=== PATIENT | male | born 1960 | race Caucasian/White ===

== ENCOUNTER 2016-05-18 18:22 | Emergency (ER) | payer OTHER ==
[~2016-05-18] VITALS: Ht 182.9 cm; Wt 124.3 kg
[~2016-05-18 18:22] MED LIST: LOPRESSOR 25MG25 MG PO
--- NOTE | 2016-05-18 19:16 | ED INFLUENZA/URI COMPLAINT ---
History of Present Illness General Chief Complaint: General Adult Stated Complaint: FEVER/SWEATING/MCGEE/CHILLS Source: patient, family, old records Exam Limitations: no limitations Allergies Coded Allergies: No Known Allergies (04/23/15) Reconcile Medications Amoxicillin/Clavulanate Potass (Amox-Clav 875-125 MG Tablet) 875 MG-125 MG TABLET 1 TAB PO ONCE ANTIBIOTIC (Reported) Empagliflozin (Jardiance) 25 MG TABLET 1 TAB PO DAILY DM (Reported) Exenatide Microspheres (Bydureon Pen) (Unknown Strength) PEN.INJCTR (Unknown Dose) UNKNOWN (Reported) Ibuprofen 800 MG TABLET 1 TAB PO TID PRN fever pain Lisinopril 10 MG TABLET 1 TAB PO DAILY BP (Reported) Metformin HCl 1,000 MG TABLET 1 TAB PO BID DM (Reported) Metoprolol Tartrate 25 MG TABLET 1 TAB PO BID HEART/BP (Reported) Niacin (Niaspan) (Unknown Strength) TAB.ER.24H (Unknown Dose) UNKNOWN ( Reported) Oseltamivir Phosphate (Tamiflu) 75 MG CAPSULE 1 CAP PO BID viral Sitagliptin Phosphate (Januvia) 100 MG TABLET 1 TAB PO DAILY DM (Reported) Triage Note: RECEIVED 55 YO MALE C/O CHILLS, FEVER, HEADACHES, SWEATING, STARTED YESTERDAY. NO C/O N/V/D. NO C/O SOB/C.P. OCCASIONAL COUGH, CONGESTION. Triage Nurses Notes Reviewed? yes Onset: Abrupt Duration: day(s): (1), constant Timing: recent history Severity: moderate Severity Numbers: 6 Prior Episodes/Possible Cause: no prior episodes No Modifying Factors: none Associated Symptoms: cough, fever/chills, muscle aches HPI: 55-year-old male with history of hypertension diabetes sarcoidosis presents to emergency room complaining of chills fevers as high as 101 nonproductive cough diaphoresis congestion which she states feels like a sinus infection for the past 2 days. Patient denies any sick contacts. Patient states he always has a dry nonproductive cough and this cough today is no different from the past. He denies shortness of breath chest pain palpitations abdominal pain nausea vomiting or diarrhea no urinary symptoms or rashes to the skin. Denies any recent tick or insect bite there is no modifying factors or associated symptoms otherwise his last dose of Advil was at 3:00 today. (JIMBO LINARES) Vital Signs & Intake/Output Vital Signs & Intake/Output Vital Signs Date Time Temp Pulse Resp B/P Pulse O2 O2 Flow FiO2 Ox Delivery Rate 05/18 2146 98.5 114 18 136/75 95 05/18 1841 96.3 143 20 122/83 96 Room Air Past History Travel History Traveled to [place] past 21 day No Medical History Any Pertinent Medical History? see below for history Neurological: NEUROPATHY EENT: NONE Cardiovascular: HYPERTENSION Respiratory: NONE Gastrointestinal: NONE Hepatic: NONE Renal: NONE Musculoskeletal: SARCODIOSIS Psychiatric: NONE Endocrine: DIABETES 2 Blood Disorders: NONE Cancer(s): NONE Surgical History Surgical History: non-contributory Psychosocial History What is your primary language Nepalese Tobacco Use: Never used Family History Hx Contributory? No (JIMBO LINARES) Review of Systems Review of Systems Constitutional: Reports: see HPI. All Other Systems: Reviewed and Negative Comments Review of systems: See HPI, All other systems negative. Constitutional, chills fever, malaise no weight loss HEENT: No visual changes no sore throat congestion, no ear pain Cardiovascular: No chest pain , no palpitation Skin, no jaundice no rashes, no change in skin Respiratory: No dyspnea no cough no sputum no hemoptysis GI: No nausea no vomiting, no diarrhea, no bloating/constipation : No dysuria No hematuria, no frequency Muscle skeletal: No joint pain, no back pain, no neck pain, Neurologic: No numbness no headache Psych: No stress n Heme/endocrine: No bruising no bleeding Immunology: No lymphadenopathy (JIMBO LINARES) Physical Exam Physical Exam General Appearance: well developed/nourished, no apparent distress, alert, awake Ears, Nose, Throat: normal ENT inspection, moist mucous membrane Comments: Well-developed well-nourished person in no acute distress Head/Face: Atraumatic, no maxillary/frontal sinus tenderness, no facial swelling Eyes: PERRL, EOMI, no conjunctival injection. No nystagmus Ear:External auditory canal and Tympanic membranes clear, no erythema, no FB. Nose: atraumatic.Normal inspection: No bleeding Throat: Moist mucous membranes.Pharynx normal. No pharyngeal erythema/exudate seen. No stridor/drooling or assymetry. No swelling or edema. Neck: Supple, no lymphadenopathy, FROM Back: Nontender, no CVA tenderness. Full range of motion Cardiovascular: Tachycardic, regular rhythm no murmurs rubs Respiratory: Chest nontender.There were no bony deformities, no asymmetry. No respiratory distress. Patient speaking in full complete sentences. Breath sounds clear to auscultation bilaterally: NO W/R/R Abdomen: Soft, nontender nondistended, no appreciable organomegaly. Normal bowel sounds. No rebound/guarding, Extremity: No edema, full range of motion of extremities, normal and equal pulses bilaterally, 5 out of 5 strength noted to bilateral upper and lower extremities Neuro: Alert oriented x3, motor sensory normal, cranial nerves II through XII grossly intact. There were no obvious focal neurologic abnormalities. Skin: No appreciable rash on exposed skin, skin is warm and dry. Psych: Mood and affect is normal, memory and judgment is normal. Core Measures Severe Sepsis Present: No Septic Shock Present: No (MAGDALENA ARIAS,JIMBO) Progress Differential Diagnosis: influenza, meningitis, otitis, pneumonia, pharyngitis, sinusitis, UTI, ELECTROLYTE ABNORMALITY, thyroid abnoramlity, sinusitits Diagnostic Imaging: Viewed by Me: Radiology Read. Discussed w/RAD: Radiology Read. Radiology Impression: PATIENT: DENVER OROZCO PRESENT AGE: 55 PATIENT ACCOUNT NO: [id number] : 60 LOCATION: [facility] ORDERING PHYSICIAN: JIMBO ARIAS SERVICE DATE: 05/18/16 EXAM TYPE: RAD - XRY- PORTABLE CHEST XRAY EXAMINATION: XR PORTABLE CHEST CLINICAL INFORMATION: Fever, cough. History of sarcoidosis. COMPARISON: Chest x-ray 04/23/2015. TECHNIQUE: Portable AP view of the chest was obtained. FINDINGS: The lungs are well- expanded and clear without focal airspace consolidation. No pleural effusions or pneumothoraces are identified. Cardiomediastinal contours are within normal limits. Soft tissues are unremarkable. No acute osseous abnormality is identified. IMPRESSION: No acute pulmonary process. DICTATED BY: RITA GUEVARA MD DATE/TIME DICTATED:05/18/162024 ASTROBIOLOGIST:JOSSELINE DATE/TIME TRANSCRIBED:05/18/162024 CONFIDENTIAL, DO NOT COPY WITHOUT APPROPRIATE AUTHORIZATION. <Electronically signed in Other Vendor System> SIGNED BY: RITA GUEVARA MD 05/18/162028 Initial ED EKG: STACH AT 130, NORMAL AXIS, NO ACUTE ST SEG CHANGES, NORMAL INTERVALS Prior EKG: unchanged (stach in 130s-03/2015) Rhythm Strip: sinus tachycardia (JIMBO LINARES) Plan of Care: Orders Procedure Date/time Status Add-on Test (ER Only) 05/19 2035 Active THYROID STIMULATING HORMONE 05/18 1952 Complete URINE DRUGS OF ABUSE 05/19 1935 Complete URINALYSIS 05/19 1935 Complete Saline Lock 05/18 1914 Active RAPID VIRAL INFLUENZA A 05/19 1911 Complete BLOOD CULTURE 05/19 1911 Active LACTIC ACID 05/19 1911 Complete COMPREHENSIVE METABOLIC PANEL 05/19 1911 Complete CBC WITHOUT DIFFERENTIAL 05/19 1911 Complete EKG 05/19 1843 Active Current Medications Sig/Heber Start time Last Medication Dose Stop Time Status Admin Furosemide 40 MG ONCE ONE 05/18 2044 CAN (Lasix) 05/18 2045 Laboratory Tests 05/18/162211: Lactic Acid Cancelled 05/18/162113: Urine Opiates Screen < 100.00, Methadone Screen < 40, Barbiturate Screen < 60, Ur Phencyclidine Scrn < 6.00, Amphetamines Screen < 100, U Benzodiazepines Scrn < 85, Urine Cocaine Screen < 50, Urine Cannabis Screen < 5.00, Urinalysis LIGHT H, Urine Color YEL, Urine Clarity CLEAR, Urine pH 5.5, Ur Specific Rhodelia 1.020 , Urine Protein 30 H, Urine Ketones TRACE H, Urine Nitrite NEG, Urine Bilirubin NEG, Urine Urobilinogen 0.2, Ur Leukocyte Esterase NEG, Ur Microscopic SEDIMENT EXAMINED, Urine WBC 3-5 H, Urine Hemoglobin NEG, Urine Glucose >=1000 H 05/18/161952: Anion Gap 13, Estimated GFR > 60, BUN/Creatinine Ratio 18.6, Glucose 308 H, Lactic Acid 1.5, Calcium 9.6, Total Bilirubin 1.3, AST 74 H, ALT 103 H, Alkaline Phosphatase 114, Total Protein 7.6, Albumin 4.3, Globulin 3.3, Albumin/ Globulin Ratio 1.3, TSH 1.830, CBC w Diff NO MAN DIFF REQ, RBC 5.59, MCV 82.9, MCH 28.3, RDW 13.5, MPV 7.2 L, Gran % 71.4, Lymphocytes % 15.9 L, Monocytes % 11.3 H, Eosinophils % 0.8, Basophils % 0.6, Absolute Granulocytes 5.4, Absolute Lymphocytes 1.2, Absolute Monocytes 0.8 H, Absolute Eosinophils 0.1, Absolute Basophils 0, PUBS MCHC 34.2 Microbiology 05/18 2028 NASKIARYN: Influenza Virus A & B Rapid Smear - COMP 05/19 2011 BLOOD: Blood Culture - RECD 05/19 1951 BLOOD: Blood Culture - RECD Old records reviewed patient has been tachycardic up into the 130s and his previous ER evaluations labs ordered old records reviewed IV fluids patient medicated with Toradol 30 motor grams IV 05/18/2016 9:20:55 PM I discussed with the patient all his lab results to date are rate is now in the 110 sinus tach IV fluids are running patient remains afebrile, case was discussed with Dr. Reyna agrees with plan I discussed the patient plan of care going forward he feels comfortable this plan nontoxic appearing at this time 05/18/2016 9:57:09 PM discussed the patient only all of his remaining lab results need for close follow-up as scheduled on Saturday I discussed with the patient at length all of their results. I had an extensive conversation regarding need for close follow up with their primary care physician this week as well as return precautions. I answered all of their questions, they feel comfortable with the plan and follow-up care. I discussed the medications that they will receive with the patient. I gave them signs and symptoms that could indicate an adverse reaction. I have advised them to limit their activities until they can see how they respond to the medication. (MAGDALENA ARIAS,JIMBO) Departure Departure Time of Disposition: 2154 Disposition: HOME OR SELF CARE Condition: Stable Clinical Impression Primary Impression: Viral syndrome Referrals: TREE SILVA,CAN Burden (PCP/Family) Additional Instructions: Take the Augmentin as previously directed, Tamiflu as discussed you have been given tonight's dose here in the ER. Drink plenty of fluids. Interchange Tylenol Motrin every 4-6 hours. The ibuprofen and Tamiflu were sent to your pharmacy. Return immediately if he had persistent fever, worsening of your symptoms despite medication or have any other concerns otherwise follow-up with her primary care physician for follow-up repeat evaluation on Saturday Departure Forms: Customer Survey General Discharge Information Prescriptions: Current Visit Scripts Oseltamivir Phosphate (Tamiflu) 1 CAP PO BID #10 CAP Ibuprofen 1 TAB PO TID PRN fever pain #30 TAB (MAGDALENA ARIAS,JIMBO) PA/ASSEMBLY MACHINE TOOL SETTER Co-Sign Statement Statement: ED Attending supervision documentation- [x] I saw and evaluated the patient. I have also reviewed all the pertinent lab results and diagnostic results. I agree with the findings and the plan of care as documented in the PA's/ASSEMBLY MACHINE TOOL SETTER's documentation. [] I have reviewed the ED Record and agree with the PA's/ASSEMBLY MACHINE TOOL SETTER's documentation. [] Additions or exceptions (if any) to the PAs/ASSEMBLY MACHINE TOOL SETTER's note and plan are summarized below: [] (DOMITILA SILVA,GABY Alfonso)
[2016-05-18] MEDS ORDERED: NIASPAN500 M1 (19:23)
[2016-05-18] MEDS ORDERED: AMOX-CLAV 875-1 EACH PO (19:23)
[2016-05-18] MEDS ORDERED: BYDUREON P2 MG/0.65 (19:24)
[2016-05-18] MEDS ORDERED: JANUVIA100 M1 PO (19:25)
[2016-05-18] MEDS ORDERED: LISINOPRIL10 M1 PO (19:26)
[2016-05-18] MEDS ORDERED: JARDIANCE25 M1 PO (19:26)
[2016-05-18] MEDS ORDERED: METOPROLOL TART25 M1 PO (19:26)
[2016-05-18] MEDS ORDERED: METFORMIN HCL1000 M1 PO (19:26)
--- NOTE | 2016-05-18 20:29 | RADIOLOGY REPORT ---
EXAMINATION: XR PORTABLE CHEST CLINICAL INFORMATION: Fever, cough. History of sarcoidosis. COMPARISON: Chest x-ray 04/23/2015. TECHNIQUE: Portable AP view of the chest was obtained. FINDINGS: The lungs are well-expanded and clear without focal airspace consolidation. No pleural effusions or pneumothoraces are identified. Cardiomediastinal contours are within normal limits. Soft tissues are unremarkable. No acute osseous abnormality is identified. IMPRESSION: No acute pulmonary process.
[2016-05-18 20:34] LABS: ABSOLUTE BASOPHIL COUNT 0 /CUMM (0.0-0.2); ABSOLUTE EOSINOPHIL COUNT 0.1 /CUMM (0.0-0.7); ABSOLUTE GRANULOCYTE CT 5.4 /CUMM (1.4-6.5); ABSOLUTE LYMPH COUNT 1.2 /CUMM (1.2-3.4); ABSOLUTE MONOCYTE COUNT 0.8 /CUMM (0.10-0.60); BASOPHIL % 0.6 % (0.0-2.0); EOSINOPHIL % 0.8 % (0-5); GRANULOCYTE % 71.4 % (42.2-75.2); HEMATOCRIT 46.3 % (42-52); MEAN CORPUSCULAR HGB 28.3 PG (27.0-31.0); MEAN CORPUSCULAR HGB CONC 34.2 G/DL (33.0-37.0); MEAN CORPUSCULAR VOLUME 82.9 FL (80.0-94.0); MEAN PLATELET VOLUME 7.2 FL (7.4-10.4); PLATELET COUNT 224 /CUMM (130-400); RBC DISTRIBUTION WIDTH 13.5 % (11.5-14.5); RED BLOOD CELL CT 5.59 /CUMM (4.70-6.10); WHITE BLOOD CELL COUNT 7.5 /CUMM (4.8-10.8)
[2016-05-18 21:46] VITALS: BP 136/75
[2016-05-18] MEDS ORDERED: TAMIFLU75 M1 PO (21:56)
[2016-05-18] MEDS ORDERED: IBUPROFEN800 M1 PO (21:56)
== END 2016-05-18 22:15 ==
LOC: ERH 18:22
PROVIDERS: Physician Assistant Medical
DX: B34.9 Viral infection, unspecified (principal)
CPT/HCPCS: 80307; 81001; 87040; 87804; 87804-59; 93005; 93010; 96374; J1885